=== PATIENT | female | born 1935 | race African-American/Black ===

== ENCOUNTER 2017-07-11 08:31 | Emergency (ER) | payer OTHER ==
[~2017-07-11] VITALS: Ht 165.1 cm; Wt 65.0 kg
[2017-07-11] MEDS ORDERED: DIPH50CA38 PO (08:37)
[2017-07-11 09:00] VITALS: BP 171/98
[2017-07-11] MEDS ORDERED: FAMOTIDINE 20MG/2ML VIAL IV ONE (09:15)
[2017-07-11] MEDS ORDERED: METHYLPREDNISOLONE SOD SUCC 125 MG/2 ML VIAL IV ONE (09:15)
[2017-07-11] MEDS ORDERED: DIPHENHYDRAMINE 50MG CAPSULE PO ONE (09:15)
== END 2017-07-11 11:05 | disposition home or self-care (01) ==
LOC: ER 09:02
DX: T78.1XXA Other adverse food reactions, not elsewhere classified, initial encounter (principal); E11.9 Type 2 diabetes mellitus without complications; I10 Essential (primary) hypertension; Z88.0 Allergy status to penicillin; Z88.5 Allergy status to narcotic agent; Z90.710 Acquired absence of both cervix and uterus; Z91.018 Allergy to other foods; X58.XXXA Exposure to other specified factors, initial encounter; Y93.89 Activity, other specified; Y99.8 Other external cause status; Y92.89 Other specified places as the place of occurrence of the external cause
CPT/HCPCS: 96374; 96375; 99284; J2930; J3490; Q0163